=== PATIENT | female | born 1985 | race Caucasian/White ===

== ENCOUNTER 2018-12-18 13:46 | Emergency (ER) | payer OTHER ==
[2018-12-18] MEDS ORDERED: LIDOCAINE HCL 1% 20 ML VIAL ONE (14:54)
== END 2018-12-18 15:38 | disposition home or self-care (01) ==
LOC: EDH 13:46
DX: L02.412 Cutaneous abscess of left axilla (principal); Z98.51 Tubal ligation status; Z90.49 Acquired absence of other specified parts of digestive tract; Z88.6 Allergy status to analgesic agent; Z72.0 Tobacco use
CPT/HCPCS: 10060